=== PATIENT | female | born 1960 | race Caucasian/White ===

== ENCOUNTER 2022-01-13 08:52 | Outpatient (CLI) | payer BC, SELFPAY ==
[2022-01-13 13:52] LABS: Chloride* 101 mmol/L (96-114); Sodium* 137 mmol/L (135-149)
[2022-01-13 13:53] LABS: Potassium* 4.3 mmol/L (3.6-5.1)
[2022-01-13 13:55] LABS: Creatinine* 0.8 mg/dL (0.5-1.5); Estimated Glomerular Filt Rate 83 ml/min
[2022-01-13 13:56] LABS: Blood Urea Nitrogen* 23 mg/dL (7-30); Calcium* 9.6 mg/dL (8.4-10.6); Carbon Dioxide* 27 mmol/L (20-32); Glucose* 108 mg/dL (60-115)
== END 2022-01-13 08:53 | disposition home or self-care (01) ==
LOC: LKVREF 08:53
PROVIDERS: PCP Emergency Medicine; Visit Provider Physician Assistant Medical
DX: I10 Essential (primary) hypertension (principal)
CPT/HCPCS: 80048

== ENCOUNTER 2022-03-27 13:22 | Outpatient (CLI) | payer BC, SELFPAY ==
--- NOTE | 2022-03-27 13:30 | MR_ITS ---
[address] [address] Phone:?[phone] Fax:?[phone] Referring Physician Information: Huang Flores M.D. [id number] [facility] [address] Phone:?[phone] Fax:?[phone] Patient:Jacqueline Fry D.O.B:?1960 Sex:?Female Phone:?[phone] [facility] MRN:?[id number] Exam Date:?03/27/2022 ? EXAM: MRI of the LEFT KNEE, without contrast CLINICAL: Left knee pain. Evaluate medial meniscus. COMPARISONS: None available. TECHNICAL: MR sequences of the left knee: sagittals: PD, PDFS coronals: PD, T2FS axials: PD, PDFS SEDATION: None. CONTRAST: None. FINDINGS: Ligaments: ACL: Intact ACL anteromedial and posterolateral bundles, without sprain or tear. PCL: Intact PCL, without acute or chronic injury. MCL: Mild thickening of the proximal superficial MCL likely reflecting sequelae of prior sprain injuries, with increased soft tissue edema about the MCL. No evidence of MCL disruption. LCL: Intact LCL, without injury. Posterolateral corner: Popliteus, biceps femoris, iliotibial band, and the popliteofibular ligament appear intact. Posteromedial corner: Semimembranosus, pes anserine tendons and posterior oblique ligament appear intact. Extensor mechanism: Patellar tendon: Intact, without tendinopathy. Quadriceps tendon: Intact, without tendinopathy. Retinacula: Medial and lateral retinacula are intact. Fat pads: There is minimal edema within superolateral Hoffa's fat. Patellofemoral joint: Patella: Full thickness chondral loss involves the medial facet and patellar median ridge with mild underlying subchondral reactive edema. Trochlea: Grade 3-4 chondral loss involves the medial and inferior central trochlea with mild subchondral reactive marrow edema. Medial compartment: Medial meniscus: There is high-grade complex tearing with complete disruption/avulsion of the posterior root fibers as seen on sagittal series 6 image 14-15 and coronal series 8 image 20-21. Degenerative signal changes involving the posterior horn. Mild degenerative fraying/tearing involves the free edge of the body segment. There is approximately 4 mm of medial extrusion of the peripheral body segment medial meniscus into the medial gutter. Medial cartilage: High-grade/full-thickness chondral loss involves the weightbearing medial femoral condyle, also seen to involve the peripheral posterior nonweightbearing medial femoral condyle with mild underlying subchondral reactive edema. Lateral compartment: Lateral meniscus: Ill-defined degenerative fraying/tearing involves the posterior root fibers on sagittal series 6 image 19-20. Lateral meniscus otherwise appears intact. No meniscal displacement. Lateral cartilage: There is heterogeneity of the patellar cartilage. Grade 2-3 chondral thinning involves the weightbearing lateral femoral condyle. Knee joint: Effusion: Moderate left knee effusion. Intra-articular bodies:?No convincing bodies identified. Popliteal cyst: Large popliteal cyst is present with internal complexity/synovitis. Bones: There is mild subchondral marrow edema involving the peripheral medial tibial plateau. No osseous fracture site is identified. Mild degenerative peripheral marginal spurring involves all 3 compartments of the knee. IMPRESSION: 1. Tearing of the medial meniscus as above, with approximately 4 mm of medial extrusion of the peripheral body segment medial meniscus into the medial gutter. 2. Ill-defined degenerative fraying/tearing involving the posterior root fibers lateral meniscus. 3. Tricompartmental chondromalacia as above, with high-grade/full-thickness chondral loss seen to involve the patellofemoral and medial compartments. 4. Mild subchondral marrow edema involving the peripheral medial tibial plateau may reflect reactive changes or mild stress related change. No discrete osseous fracture identified. 5. Mild thickening of the proximal superficial MCL suggesting sequelae of prior sprain injuries, with soft tissue edema noted about the MCL. Remaining ligamentous structures appear intact. 6. Moderate joint effusion. 7. Large popliteal cyst. [facility] Electronically signed on 03/27/2022 5:03:00 PM by Pj Marshall D.O.
== END 2022-03-27 13:23 | disposition home or self-care (01) ==
LOC: MRI 13:23
PROVIDERS: PCP Physician Assistant Medical; Visit Provider Orthopaedic Surgery Sports Medicine
DX: M25.562 Pain in left knee (principal); S83.242A Other tear of medial meniscus, current injury, left knee, initial encounter; M94.262 Chondromalacia, left knee; M12.46 Intermittent hydrarthrosis, knee; M71.22 Synovial cyst of popliteal space [Baker], left knee; S83.8X2A Sprain of other specified parts of left knee, initial encounter
CPT/HCPCS: 73721

== ENCOUNTER 2022-05-06 06:34 | Day surgery (SDC) | payer BC, SELFPAY ==
[2022-05-06] VITALS (11 sets, daily range): BP systolic 106–134; BP diastolic 62–87; PULSE 71–91; RESP 16; TEMP 36.1–36.7; O2SAT 95–99; BMI 31.6
[2022-05-06] MEDS: LACTATED RINGERS 1000 ML 1,000 ML 100 ML IV (07:30)
[2022-05-06] MEDS: SODIUM CHLORIDE 0.9 % (FLUSH) 10 ML SYRINGE IVF (07:33)
--- NOTE | 2022-05-06 07:37 | SUR.PREOP ---
Home COVID test negative verified by scientific writer.
[2022-05-06] MEDS: CEFAZOLIN 2 GM in 0.9 % SODIUM CHLORIDE Mini-bag 100 ML IVPB (08:02)
[2022-05-06] MEDS: ROPIVACAINE 0.5% 30 ML 150 MG INJECTION (08:48)
--- NOTE | 2022-05-06 08:55 | P.ORPRC_ITS ---
Procedure Note Date of procedure: 05/06/22 Procedure: PREOPERATIVE DIAGNOSIS: 1. Left knee medial meniscus posterior root tear 2. Left knee MCL sprain, remote/chronic, grade 2 3. 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 Left knee grade 3-4 chondromalacia medial femoral condyle with loose chondral flaps POSTOPERATIVE DIAGNOSIS: 1. Left knee medial meniscus posterior root tear 2. Left knee MCL sprain, remote/chronic, grade 2 3. 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 Left knee grade 3-4 chondromalacia medial femoral condyle with loose chondral flaps PROCEDURE: 1. Left knee arthroscopic partial medial menisectomy 2. Left knee chondroplasty medial femoral condyle SURGEON: Huang Flores M.D. LOCOMOTIVE OILER: Francis Shannon PA-C. Of note, an bindery library technical assistant was critical for this case to aid in patient positioning, knee manipulation, instrument exchange, and closure. ANESTHESIA: Spinal EBL: Less than 5 mL TOURNIQUET: 25 minutes at 300 torr COMPLICATIONS: None evident INDICATIONS: The patient is a pleasant 61-year-old female who has experienced left knee pain particularly with any twisting or turning. Physical exam was concerning for medial meniscus tear, this was confirmed on MRI. Additionally, attempted nonoperative management has been tried, and failed. Thus, surgery was recommended. FINDINGS: Full-thickness chondral loss broadly through the trochlea . (approximately 25 mm in diameter) and grade 3-4 patella broadly median ridge and medial and lateral adjacent patellar facets. Grade 3-4 chondromalacia medial femoral condyle far medial aspect and weight-bearing portion with associated loose chondral flaps. Medial meniscus posterior root tear. Chronic in nature based on fibrosed rounded surface and no hemorrhagic tissue. In addition, there is some posterior horn tearing showing significant instability to the meniscus. Also meniscal capsular sprained midbody adjacent to the deep MCL attachment. Lateral compartment was intact. No loose bodies evident. Moderate to large Jameson cyst encountered. DESCRIPTION OF PROCEDURE: After a thorough discussion of risks, benefits, and alternatives, the patient was brought to the operating room and placed upon the operating table. Induction of anesthesia was undertaken as previously noted. 2g iv Ancef was administered within 1 hr of incision preoperatively. Appropriate time-out was performed identifying proper patient, site, and procedure. The left lower extremity was prepped and draped in the appropriate sterile fashion using ChloraPrep. The limb was exsanguinated and tourniquet inflated. Anterolateral and anteromedial portals were established with an 11 blade, and a diagnostic arthroscopy was performed. This identified the findings as noted above. Following the diagnostic arthroscopy, further inspection of the meniscus and probing of this showed it to have gross instability. However, there is also grade 3-4 chondromalacia medial compartment and large section of grade 4 chondromalacia patellofemoral compartment. The combination was felt that partial meniscectomy was prudent rather than repair. Thus, a partial medial menisectomy was performed with the combination of basket forceps and a motorized shaver. Following this, the meniscus was re-probed and found to be stable. Approximately 25 % of the overall meniscus required resection. It was also noted that the MCL had mild-moderate increased laxity compared to the contralateral side particularly at 30? of knee flexion. This seemed consistent with the patient's grade 2 MCL sprain seen on MRI. As such, a hinged knee brace was applied to help provide stability to the knee. At this stage, the shaver was reinserted into the suprapatellar pouch and all remaining meniscal debris was evacuated. Instruments were removed, excess fluid was drained, and closure performed with 4-0 Monocryl with Steri-Strips. Dressings were applied, the tourniquet deflated, and the patient was awoken from anesthesia and transferred to the PACU in stable condition. PLAN: 1. Weightbear as tolerated operative extremity. Crutch / walker ambulation assistance PRN. Straight leg raise to be initiated starting tomorrow by the patient. 2. Ice, acetominophen and/or ibuprofen, and Percocet for pain as needed. 3. Knee range of motion and quad sets/straight leg raise regularly 4. Follow up with PA visit in 7-10 days. for a wound check. Initiate physical therapy at that time
--- NOTE | 2022-05-06 09:04 | W.ANESCHARGE ---
Anesthesia Charges Start Date/Time Anesthesia Start Date: 05/06/22 Anesthesia Start Time: 07:56 Stop Date/Time Anesthesia Stop Date: 05/06/22 Anesthesia Stop Time: 09:04 Summary Emergency: No
== END 2022-05-06 10:42 | disposition home or self-care (01) ==
PROVIDERS: PCP Physician Assistant Medical; Visit Provider Orthopaedic Surgery Sports Medicine
PROC: (CPT 29882; principal; 2022-05-06 08:00)
DX: M23.222 Derangement of posterior horn of medial meniscus due to old tear or injury, left knee (principal); S83.412A Sprain of medial collateral ligament of left knee, initial encounter; M94.262 Chondromalacia, left knee; M23.52 Chronic instability of knee, left knee
CPT/HCPCS: 29881; 29877; 01400; J0690; J1100; J2250; J2370; J2400; J2405; J2704; J2795; J3010; J7120; L1833

== ENCOUNTER 2022-05-19 06:10 | Outpatient (CLI) | payer BC, SELFPAY ==
--- NOTE | 2022-05-19 08:32 | W.ANESCHARGE ---
Anesthesia Charges Start Date/Time Anesthesia Start Date: 05/19/22 Anesthesia Start Time: 07:20 Stop Date/Time Anesthesia Stop Date: 05/19/22 Anesthesia Stop Time: 07:45 Summary Emergency: No
--- NOTE | 2022-05-19 08:37 | W.ANESCHARGE ---
Anesthesia Charges Start Date/Time Anesthesia Start Date: 05/19/22 Anesthesia Start Time: 07:20 Stop Date/Time Anesthesia Stop Date: 05/19/22 Anesthesia Stop Time: 07:45 Summary Emergency: No
== END 2022-05-19 06:11 | disposition home or self-care (01) ==
LOC: OP CLINIC 06:11
PROVIDERS: PCP Physician Assistant Medical; Visit Provider Surgery
DX: Z12.11 Encounter for screening for malignant neoplasm of colon (principal)
CPT/HCPCS: 00811; 00812; 45378; J2704

== ENCOUNTER 2022-07-03 08:15 | Outpatient (RCR) | payer BC, SELFPAY | END 2022-08-12 14:27 | disposition home or self-care (01) | PROVIDERS: PCP Physician Assistant Medical; Visit Provider Physician Assistant Medical | DX: M25.562 Pain in left knee (principal); Z98.890 Other specified postprocedural states; Z51.89 Encounter for other specified aftercare | CPT/HCPCS: 97110; 97140; 97161; 97164 ==

== ENCOUNTER 2022-08-24 08:57 | Outpatient (CLI) | payer BC, SELFPAY ==
--- NOTE | 2022-08-24 09:15 | CRLHL7_ITS ---
For Patients: As a result of the Century Cures Act, medical imaging exams and procedure reports are released immediately into your electronic medical record. You may view this report before your referring provider. If you have questions, please contact your health care provider. BILATERAL SCREENING MAMMOGRAM WITH COMPUTER-AIDED DETECTION TECHNIQUE: CC and MLO views were obtained. These mammographic images have been obtained using full-field digital technique. These mammographic images were interpreted with the benefit of computer-aided detection. COMPARISON FILM: 07/25/21, 03/29/20, 01/27/18. FINDINGS: The breasts are almost entirely fatty IMPRESSION: There is no radiographic evidence for malignancy. ASSESSMENT: BI-RADS Category 2: Benign RECOMMENDATION: Routine screening mammogram in 1 year. A lay language report of this examination will be provided to the patient. Ruiz Carter M.D. Diagnostic/Nuclear Medicine Radiologist [email or web address] JO/Dictated by: Ruiz Carter MD @ 08/24/2022 9:39:00 AM (Electronically Signed)
== END 2022-08-24 08:58 | disposition home or self-care (01) ==
LOC: MAMMO 08:58
PROVIDERS: PCP Physician Assistant Medical; Visit Provider Physician Assistant Medical
DX: Z12.31 Encounter for screening mammogram for malignant neoplasm of breast (principal)
CPT/HCPCS: 77063; 77067

== ENCOUNTER 2022-09-30 08:40 | Outpatient (CLI) | payer BC, SELFPAY | END 2022-09-30 08:41 | disposition home or self-care (01) | PROVIDERS: PCP Physician Assistant Medical; Visit Provider Physician Assistant Medical | DX: Z00.00 Encounter for general adult medical examination without abnormal findings (principal); I10 Essential (primary) hypertension; D50.9 Iron deficiency anemia, unspecified; Z13.1 Encounter for screening for diabetes mellitus; Z13.6 Encounter for screening for cardiovascular disorders | CPT/HCPCS: 80061; 82947; 84443 ==

== ENCOUNTER 2023-10-05 15:47 | Outpatient (CLI) | payer BC, SELFPAY ==
--- OUTSIDE RECORDS SUMMARY | 2023-10-05 15:49 | XMS_ITS | Data Portability ---
Author Name Unknown Address [address] [place] [address] Phone [phone] Organization [facility], Main Office Address [address] [place] [address] Assessment Encounter Date Assessment Date Assessment LastModified by Organization Details LastModified Time 12/21/2022 12/21/2022 1. Biopsy-proven basal carcinoma left upper cutaneous lip near the nasal alar crease. 2. Biopsy-proven basal carcinoma left nasal sidewall near the left lower eyelid. We discussed the almost guaranteed swelling and bruising of the left lower eyelid. We reviewed the length of scar versus the width of the scar. Pain discomfort downtime chance of infection. Chance of recurrence. Numbness of the upper lip. The importance of not biting her burning her lip throughout the day. Written and verbal informed consent obtained. Both areas cleansed with alcohol. New paragraph both areas anesthetized 1% lidocaine with epinephrine primarily, lidocaine without epinephrine into a small degree some ropivacaine. 1. Basal cell carcinoma left nasal sidewall. Mohs case number [id number] Stage I: Curette debulking performed. 1/2 mm margins taken down to the subcutis revealing basal carcinoma near the 1:00 2:00 3:00 pole. Stage II: Curette debulking performed. 1/2 mm margins taken from 11:00 to 4:00 through 3:00 revealing no residual basal carcinoma Total stages 2 total sections 2 final defect measuring 0.8 cm. Intermediate closure performed by removing redundancies superior and inferior in a premarked wrinkle. Undermined 3 to 7 mm. Hemostasis attained electrocautery closed with 4-0 Vicryl in simple interrupted 4-0 Prolene. For an intermediate closure measuring 1.3 cm. Pressure dressing applied. Typewritten verbal wound care instructions given along with cell phone number suture removal in 8 days in [place]. 2. Biopsy-proven basal carcinoma left upper cutaneous lip here for Mohs surgery Mohs case number [id number] Stage I: Curette debulking performed. 1/2 mm margins taken to the deep subcutis revealing no residual basal carcinoma Total stages 1 total section 1 0.9 cm. Intermediate closure performed with modified m plasty superior. Undermined all directions 3 to 7 mm. Hemostasis obtained with electrocautery pressure closed with 4-0 Vicryl in simple interrupted 4-0 Prolene for an intermediate closure of 2.7 cm. Pressure dressing applied typewritten verbal wound care instructions given 2 distinct skin cancers left nasal sidewall basal carcinoma and left upper cutaneous lip. They are both intermediate closures therefore they will be combined for closure length measuring 4.0 cm The basal carcinoma on the left nasal sidewall had 2 stages 2 sections. The basal carcinoma left upper lip had 1 stage I section. Follow-up in [place] Typewritten verbal wound care instructions given along with cell phone number. [email or web address] Not available 12/22/2022 00:42:33 Plan of Treatment Reminders Order Date Submit Date Provider Last Modified By Organization Details Last Modified Time Details Appointments None record ed. Lab None record ed. Referral None record ed. Procedures None record ed. Surgeries None record ed. Imaging None record ed. Medication Orders None record ed. Patient TargetsNo targets recorded. Patient InstructionsNo instructions recorded. Reason for Referral None Reported. Results Created Date Observation Date Name Description Value Unit Range Abnormal Flag LastModifiedBy Organization Detail LastModifiedTime Result Notes None recorded. Medical Equipment None Reported. Medications Name Sig Start Date Stop Date Status Note LastModified by Organization Details LastModified Time oxycodone-acet aminophen 5 mg-325 mg tablet TAKE 1 TABLET BY MOUTH EVERY 4 TO 8 HOURS NEEDED FOR PAIN active Not Available Not Available No t Available lisinopril 10 mg tablet TAKE 1 TABLET BY MOUTH EVERY DAY active Not Available Not Available No t Available hydrochlorothi azide 12.5 mg capsule TAKE 1 CAPSULE BY MOUTH EVERY DAY active Not Available Not Available No t Available GaviLyte-G 236 gram-22.74 gram-6.74 gram-5.86 gram oral solution FOLLOW ENCLOSED DIRECTION S. active Not Available Not Available No t Available Vitals None Recorded Social History None recorded. Functional Status None recorded. Mental Status None recorded. Family History Nothing Reported. Medical History No medical history recorded. Gynecological HistoryNo gynecological history recorded. Obstetrics History GPAL:G 0 P 0 0 0 0 Past Encounters Encounter ID Performer Location Encounter Start Date Encounter Closed Date Diagnosis/Indication Diagnosis SNOMED-CT Code 88759 Lio Kelley MD Main Office [address] [facility] [place] [address] 12/21/2022 12:26:23 12/22/2022 00:43:32 Basal cell carcinoma of nose [id number] Basal cell carcinoma of skin of lip [id number] Health Concerns Section Related Observation LastModified by Organization Detai ls LastModified Time None Recorded Concern Status LastModified by Organization Details LastModified Time None Recorded Advance Directives Directive None Recorded Payers Encounter Date Sequence Insurance Name Policy Number Policy Ramos Covered Member ID Ramos Member ID Guarantor Name 12/21/2022 1 [place] [id number] Belkyssonal Fry [id number] Belkys Fry Notes Date Note Type Note Provider Name and Address Organization Details Recorded Time 12/21/2022 text/html HPI Notes: 61-year-old female presents for 2 biopsy-proven basal carcinomas in high risk areas left upper cutaneous lip near the nasolabial fold superior and the left nasal sidewall abutting the medial teardrop of the left lower eyelid She is accompanied by her daughter but her daughter does not attend any portion of the actual visit. Her past medical, family history and social history are unchanged in the interim since her visit in [facility] review systems: patient feels overall excellent health, weight stable, no issues with bleeding, clotting or healing. Lio Kelley MD [address], [place], [address], [facility] 12/22/2022 00:43:26 OBGyn Episode No OBEpisode recorded.
--- NOTE | 2023-10-05 16:00 | MM_ITS ---
Patient: ANALISA BISHOP Facility:?[facility] Patient ID:?[id number] Site Patient ID:?[id number]. Site :?1960 Study:?XRay-Breast Bilateral 3D screening mammogram w/cad-10/05/2023 4:20:16 PM Ordering Physician:Babatunde Final Report: BILATERAL SCREENING MAMMOGRAM WITH COMPUTER-AIDED DETECTION AND TOMOSYNTHESIS TECHNIQUE: CC and MLO views were obtained. These mammographic images have been obtained using full-field digital technique. These mammographic images were interpreted with the benefit of computer-aided detection. Breast Tomosynthesis was used in this interpretation. COMPARISON FILM: 08/24/22, 07/25/21, 03/29/20. FINDINGS: There are scattered areas of fibroglandular density. IMPRESSION: There is no radiographic evidence for malignancy. ASSESSMENT: BI-RADS Category 2: Benign RECOMMENDATION: Routine screening mammogram in 1 year. A lay language report of this examination will be provided to the patient. David Silver M.D. Diagnostic Radiologist [email or web address] DSM/sp R& Transcribed: 4:29 p.m. SP/Dictated by: David Silver MD @ 10/06/2023 11:40:00 AM Signed by:?David Silver MD @10/07/2023 5:30:03 AM (Electronic Signature)
== END 2023-10-05 15:48 | disposition home or self-care (01) ==
PROVIDERS: PCP Physician Assistant Medical; Visit Provider Physician Assistant Medical
DX: Z12.31 Encounter for screening mammogram for malignant neoplasm of breast (principal)
CPT/HCPCS: 77063; 77067

== ENCOUNTER 2023-11-11 08:51 | Outpatient (CLI) | payer BC, SELFPAY | END 2023-11-11 08:52 | disposition home or self-care (01) | PROVIDERS: PCP Physician Assistant Medical; Visit Provider Physician Assistant Medical | DX: I10 Essential (primary) hypertension (principal); M25.59 Pain in other specified joint; Z11.59 Encounter for screening for other viral diseases; Z13.29 Encounter for screening for other suspected endocrine disorder; Z13.220 Encounter for screening for lipoid disorders | CPT/HCPCS: 80053; 80061; 84443; 84550; 86039; 86140; 86200; 86431; 86618; 86703; 86803; 86812; 87086 ==

== ENCOUNTER 2024-04-03 10:45 | Outpatient (CLI) | payer BC, SELFPAY | END 2024-04-03 10:46 | disposition home or self-care (01) | LOC: LKVREF 10:46 | PROVIDERS: PCP Physician Assistant Medical; Visit Provider Family Medicine | DX: Z01.818 Encounter for other preprocedural examination (principal); I10 Essential (primary) hypertension | CPT/HCPCS: 80048 ==

== ENCOUNTER 2024-04-17 06:03 | Day surgery (SDC) | payer BC, SELFPAY ==
[2024-04-17] VITALS (22 sets, daily range): BP systolic 81–131; BP diastolic 46–79; PULSE 64–87; RESP 12–16; TEMP 36.1–36.3; O2SAT 96–100; BMI 31.1
[2024-04-17] MEDS: ACETAMINOPHEN 500 MG TABLET 1000 MG PO (06:20)
[2024-04-17] MEDS: OXYCODONE (CR) 10 MG TAB.ER.12H PO (06:20)
[2024-04-17] MEDS: SODIUM CHLORIDE 0.9 % (FLUSH) 10 ML SYRINGE IVF (06:50)
[2024-04-17] MEDS: LACTATED RINGERS 1000 ML 1,000 ML 100 ML IV (06:50)
[2024-04-17] MEDS: MIDAZOLAM HCL 1 MG/ML inj IVP (07:08)
[2024-04-17] MEDS: fentaNYL 100 MCG/2 ML inj IVP (07:08)
--- NOTE | 2024-04-17 07:14 | SUR.PREOP ---
TIME?OUT:?0707 PT/RN/MDA?VERIFICATION?OF?SURGICAL?SITE,?PROCEDURE,?AND?CONSENT OBTAINED?PRIOR?TO?INVASIVE?PROCEDURE.
--- NOTE | 2024-04-17 07:28 | W.PM.H&PU ---
History & Physical Update History & Physical Update H&P Reviewed and patient assessed: No changes noted
[2024-04-17] MEDS: CEFAZOLIN 2 GM in 0.9 % SODIUM CHLORIDE Mini-bag 100 ML IVPB (07:42)
[2024-04-17] MEDS: TRANEXAMIC ACID 100 MG/ML INJ 1000 MG IV (07:45)
--- NOTE | 2024-04-17 07:45 | CRLHL7_ITS ---
For Patients: As a result of the Century Cures Act, medical imaging exams and procedure reports are released immediately into your electronic medical record. You may view this report before your referring provider. If you have questions, please contact your health care provider. INDICATION: Left total knee arthroplasty TECHNIQUE: Knee radiograph 2 views left COMPARISON: 02/17/2024 FINDINGS: Bone: No acute fractures or aggressive bone lesions are identified. Joint: The patient is status post a total knee arthroplasty with patellar resurfacing. No significant knee effusion is seen. Soft tissue: Anterior subcutaneous gas and joint gas are present from recent surgery. No radiopaque foreign bodies are seen. Overlying fabric artifacts limits the exam. IMPRESSION: 1. There is an unremarkable postoperative appearance of the knee arthroplasty. Dictated by: Dakota Paul MD @ 04/17/2024 12:28:13 (Electronically Signed)
--- NOTE | 2024-04-17 08:53 | PM.ORPRC ---
Procedure Note Date of procedure: 04/17/24 Procedure: PREOPERATIVE DIAGNOSIS: 1. Left knee osteoarthritis, primary, severe POSTOPERATIVE DIAGNOSIS: 1. Left knee osteoarthritis, primary, severe PROCEDURE: 1. Left total knee arthroplasty SURGEON: Huang Flores MD. QUALITY ASSURANCE CONSULTANT: STACI Koehler - Of note, a skilled development assistant was critical for this case to aid in patient positioning, tissue retraction, limb manipulation/positioning, and closure. ANESTHESIA: Spinal anesthetic EBL: 50ml IMPLANTS: DePuy J&J uncemented femur/tibia, cemented patella TKA - Attune Press fit PS femur size 5 narrow, size 4 tibia, 5 mm poly spacer, 38 mm cemented patella TOURNIQUET: 75 minutes at 300 torr COMPLICATIONS: None evident INDICATIONS: The patient is a pleasant 63-year-old female who has experienced severe left knee pain and difficulty bearing weight. Workup included x-rays which revealed severe osteoarthrosis in the knee. Given the deformity, the dysfunction, and the pain, as well as the failure of nonoperative management, recommendation was made for surgery. FINDINGS: Full-thickness chondral loss diffusely throughout the medial and patellofemoral compartments. To a lesser degree lateral compartment. Degenerative meniscus pathology both compartments. Moderate effusion upon entering the joint. Tricompartmental osteophytes noted. DESCRIPTION OF PROCEDURE: Following a thorough discussion of risks, benefits, and alternatives consent was obtained and the left knee was marked. The patient was brought to the operating room and placed supine on the operating table. Induction of anesthesia was undertaken. 2 g IV Ancef and 1 g tranexamic acid was administered within 1 hr of incision preoperatively. Proper time-out was performed identifying proper patient, site, procedure. The operative extremity was prepped and draped in the appropriate sterile fashion using ChloraPrep after the patient was positioned supine with all bony prominences well padded. A longitudinal, anterior, midline skin incision was made starting approximately 3cm proximal to the superior pole of the patella and advanced distal to the tibial tubercle. A sub vastus approach was utilized . After mobilizing the patella, retropatellar fatpad was resected and the synovium in the suprapatellar pouch excised to visualize the anterior femoral cortex. We began with cutting the patella to help improve mobility of this patella and quad tendon. The patella was initially measured and found have a thickness of 20 mm. It was resected back to approximately 14.5 mm. Femoral preparation was performed via an intramedullary guide. Step drill allowed access into the femoral canal. The distal cutting guide was placed with 5? of valgus and 10 mm cut on the distal femur. Femur was sized using a anterior referencing guide in 3? of external rotation. This found have a best fit with the sizing noted above. The 4 in 1 cutting block was then placed, and the distal femur shaped accordingly. The box cut was then created and the trial implant inserted to confirm appropriate fit. We turned our attention to the proximal tibia. Extramedullary guide was utilized for cutting with the goal of being 90 degree cut from the mechanical axis of the tibia in the varus/valgus plane utilizing tibial crest as the primary alignment. Initially a 2 mm resection was performed from the medial tibial plateau. Ultimately, balancing was achieved in both flexion and extension in both varus and valgus. The knee was able to achieve full extension comfortably. It was sized to be a best fit with as noted above. The patella prep was completed with drilling and a trial placed. At this stage, trial implants were removed, the tibia and femoral components were opened and inserted. Thereafter, the patella was thoroughly irrigated normal saline and dried. The cement was previously mixed on the back table and cement placed followed by the implant. This was clamped and allowed remained stable until the cement cured. The real poly spacer was opened and inserted. All extra cement was removed, and a 3 min Betadine soak performed. Finally, a final irrigation round with normal saline was performed. Closure performed with 0 PDS and #0 Stratafix for the quad tendon/retinaculum. 2-0 Vicryl/Stratafix for the subcutaneous and 4-0 Monocryl for subcuticular closure. Dressings were applied and the patient was awoken from anesthesia after the tourniquet deflated and transferred the PACU in stable condition. A skilled development assistant was critical for this case to aid in patient positioning, tissue retraction, bone exposure, limb manipulation/positioning, patient safety, and closure. PLAN: 1. Weight bear as tolerated operative extremity. 2. 23 hr perioperative antibiotics. 3. Ice. 4. PT/OT consults for ambulation assistance/mobility education. 5. Social work consult for discharge planning. 6. DVT prophylaxis with at SCDs, Klaus Hose, and aspirin twice daily.
--- NOTE | 2024-04-17 09:23 | W.ANESCHARGE ---
Anesthesia Charges Start Date/Time Anesthesia Start Date: 04/17/24 Anesthesia Start Time: 07:30 Stop Date/Time Anesthesia Stop Date: 04/17/24 Anesthesia Stop Time: 09:21
[2024-04-17] MEDS: PHENYLEPHRINE 100 MCG/ML SYRINGE IVP (09:26)
--- NOTE | 2024-04-17 09:36 | W.ANESCHARGE ---
Anesthesia Charges Start Date/Time Anesthesia Start Date: 04/17/24 Anesthesia Start Time: 07:30 Stop Date/Time Anesthesia Stop Date: 04/17/24 Anesthesia Stop Time: 09:21
--- NOTE | 2024-04-17 09:37 | W.PM.NB ---
Nerve Block Nerve Block Time Seen by Provider: 07:10 Date Seen: 04/17/24 Type of block requested by surgeon for post-operative analgesia: femoral Side: left Time out performed: Yes Verification of patient name: Yes Verification of date of : Yes Site marking: site marked Name of person performing procedure: Meet Continuous monitoring Was continuous monitoring of O2 sat, B/P, quality assurance monitor body, recorded every 15 minutes?: Yes Procedure Checklist: sterile prep, needles and gloves Ultrasound guided. Images saved: Yes Medications given in 5ml increments after negative aspiration: Marcaine %: 0.25 mL: 15 Needle gauge: 20 Precedex (mcg): 25 Patient tolerated procedure well: Yes Block Charges Block Charge (with Pro Fee): Femoral Nerve Use of Ultrasound Machine for Block: Yes- US Guidance/pain block
--- NOTE | 2024-04-17 09:37 | W.PM.NB ---
Nerve Block Nerve Block Time Seen by Provider: 07:10 Date Seen: 04/17/24 Type of block requested by surgeon for post-operative analgesia: geniculars Side: left Time out performed: Yes Verification of patient name: Yes Verification of date of : Yes Site marking: site marked Name of person performing procedure: Meet Continuous monitoring Was continuous monitoring of O2 sat, B/P, director cardiac, recorded every 15 minutes?: Yes Procedure Checklist: sterile prep, needles and gloves Ultrasound guided. Images saved: Yes Medications given in 5ml increments after negative aspiration: Marcaine %: 0.25 mL: 9 Needle gauge: 25 Patient tolerated procedure well: Yes Block Charges Block Charge (with Pro Fee): Genicular Nerve Block
--- NOTE | 2024-04-19 06:46 | PM.ANPOST ---
Post Anesthesia Note Post Anesthesia Note Patient seen: PACU Respiratory Status: adequate Cardiovascular Status: adequate Mental Status: baseline Pain: adequate Temp: baseline Anesthetic awareness: N/A Complications: none Follow care: none
== END 2024-04-17 13:40 | disposition home or self-care (01) ==
PROVIDERS: PCP Physician Assistant Medical; Visit Provider Orthopaedic Surgery Sports Medicine
PROC: (CPT 27447; principal; 2024-04-17 07:30)
DX: M17.12 Unilateral primary osteoarthritis, left knee (principal); G89.18 Other acute postprocedural pain
CPT/HCPCS: 27447; 01402; 64447; 64454; 73560; 76942; 97110; 97116; 97161; A9270; C1776; J0665; J0690; J2250; J2371; J2704; J3010; J7120

== ENCOUNTER 2024-06-19 08:15 | Outpatient (RCR) | payer BC, SELFPAY | END 2024-08-03 15:20 | disposition home or self-care (01) | PROVIDERS: PCP Physician Assistant Medical; Visit Provider Orthopaedic Surgery Sports Medicine | DX: M17.11 Unilateral primary osteoarthritis, right knee (principal); Z96.652 Presence of left artificial knee joint; Z51.89 Encounter for other specified aftercare | CPT/HCPCS: 97016; 97110; 97140; 97161 ==

== ENCOUNTER 2025-02-27 08:01 | Outpatient (CLI) | payer MEDICARE, SELFPAY ==
--- NOTE | 2025-02-27 08:15 | CRLHL7_ITS ---
For Patients: As a result of the Century Cures Act, medical imaging exams and procedure reports are released immediately into your electronic medical record. You may view this report before your referring provider. If you have questions, please contact your health care provider. INDICATION: BILATERAL SCREENING MAMMOGRAM, ASYMPTOMATIC 64 Y/O FEMALE COMPARISON: 10/05/2023, 08/24/2022, 07/25/2021 TECHNIQUE: Digital mammogram in CC and MLO projections including computer-aided detection (CAD) and tomosynthesis. BREAST COMPOSITION: There are scattered areas of fibroglandular density. FINDINGS: No suspicious findings. ASSESSMENT: BI-RADS 1 Negative RECOMMENDATION: Annual screening mammogram. A lay language report of this examination will be provided to the patient. Dictated by: David Silver MD @ 02/27/2025 09:01:52 (Electronically Signed)
== END 2025-02-27 08:02 | disposition home or self-care (01) ==
LOC: MAMMO 08:01
PROVIDERS: PCP Physician Assistant Medical; Visit Provider Physician Assistant Medical
DX: Z12.31 Encounter for screening mammogram for malignant neoplasm of breast (principal)
CPT/HCPCS: 77063; 77067

== ENCOUNTER 2025-04-11 13:56 | Outpatient (CLI) | payer MEDICARE, SELFPAY ==
--- NOTE | 2025-04-11 10:53 | PM.PROC ---
Procedure Note Time Seen by Provider: 14:30 Date Seen: 04/11/25 Provider Contact Time: 15:15 Date of procedure: 04/11/25 Will [facility] bill your pro fee for this procedure?: Yes Procedure: CRYONEUROLYSIS TREATMENT REPORT REFERRING PROVIDER: Huang Flores TREATMENT PROVIDER: Min Dsouza PREOPERATIVE DIAGNOSIS: Right knee osteoarthritis POSTOPERATIVE DIAGNOSIS: Right knee osteoarthritis? PROCEDURE: Cryoneurolysis of Multiple Sensory Nerves of the Knee ANESTHESIA: Local INDICATIONS: The patient is a very pleasant 64-year-old female patient with primary osteoarthritis involving the right knee who presents today for cryoneurolysis of multiple sensory nerves to the knee for severe knee pain.?Patient medical history was reviewed. The risks, benefits, treatment alternatives, and complications were discussed with the patient, including but not limited to bleeding, infection, nerve or tissue damage.?Informed consent was obtained. ? PRE-TREATMENT MOTOR ASSESSMENT/PAIN SCORE: Patient was able to demonstrate intact gross motor function with plantarflexion, dorsiflexion, adduction, abduction, hip flexion, and extension of the lower extremity.?Pre-treatment pain score of 6 out of 10 in the right knee. DESCRIPTION OF PROCEDURE: After obtaining informed consent, the patient was brought back to the treatment room and positioned supine on the table.?The right lower extremity was prepped with Chlorhexadine.?We began the procedure by performing our procedural pause.?Once this was completed and verified to be accurate, I began the procedure by identifying the nerves with the use of bedside ultrasound.?After the nerves were identified, the skin was marked and, using 1% lidocaine plain, the area of the nerves were anesthetized. ? After the anesthetic was administered, the Smart Tip 2190 cryoneurolysis needle was inserted into the treatment sites using ultrasound guidance.?Treatment was then initiated on the right lower extremity with the following nerves treated: Superior, superior medial, superior lateral, inferior medial genicular nerves and the infrapatellar branch of the saphenous nerve. At the termination of the treatment, the cryoneurolysis needle was removed with the patient's skin cleansed and Band-Aids and Dutch bandage applied. Patient tolerated the procedure without any incident or concern.? Patient was then instructed to stand, mobilize the joint, and was examined to ensure gross motor skills were intact. COMPLICATIONS: None POST-TREATMENT PAIN SCORE: 0 out of 10. Right knee DISPOSITION: Discharge instructions were given to the patient with education on the post-procedure expectations. Patient was instructed to call the Ortho clinic with any post-procedure concerns or questions.
[2025-04-11 14:01] VITALS: BP 126/81; PULSE 83; RESP 16; TEMP 36.5; O2SAT 97
[2025-04-11 15:05] VITALS: BP 131/77; PULSE 75; RESP 14; TEMP 36.2; O2SAT 98
== END 2025-04-11 15:15 | disposition home or self-care (01) ==
LOC: OP CLINIC 13:57
PROVIDERS: PCP Physician Assistant Medical; Visit Provider Nurse Anesthetist, Certified Registered
DX: M17.11 Unilateral primary osteoarthritis, right knee (principal)
CPT/HCPCS: 64640; 76942; C9809

== ENCOUNTER 2025-04-23 07:09 | Day surgery (SDC) | payer MEDICARE, SELFPAY ==
[2025-04-23] VITALS (17 sets, daily range): BP systolic 105–138; BP diastolic 65–81; PULSE 63–106; RESP 12–20; TEMP 36.3–36.7; O2SAT 93–99; BMI 31.9
[2025-04-23] MEDS: LACTATED RINGERS 1000 ML 1,000 ML 100 ML IV ×3 (07:55→12:19)
[2025-04-23] MEDS: SODIUM CHLORIDE 0.9 % (FLUSH) 10 ML SYRINGE IVF (07:55)
[2025-04-23] MEDS: ACETAMINOPHEN 500 MG TABLET 1000 MG PO (08:29)
[2025-04-23] MEDS: OXYCODONE (CR) 10 MG TAB.ER.12H PO (08:29)
[2025-04-23] MEDS: MIDAZOLAM HCL 1 MG/ML inj IVP (09:00)
--- NOTE | 2025-04-23 09:03 | SUR.PREOP ---
TIME?OUT:?right knee, 0857 PT/RN/MDA?VERIFICATION?OF?SURGICAL?SITE,?PROCEDURE,?AND?CONSENT OBTAINED?PRIOR?TO?INVASIVE?PROCEDURE.
[2025-04-23] MEDS: TRANEXAMIC ACID 100 MG/ML INJ 1000 MG IV (09:20)
--- NOTE | 2025-04-23 09:43 | P.ANES_ITS ---
Anesthesia Charges Start Date/Time Anesthesia Start Date: 04/23/25 Anesthesia Start Time: 09:06 Stop Date/Time Anesthesia Stop Date: 04/23/25 Anesthesia Stop Time: 10:57 Coding CPT Codes CPT Codes: ANESTH KNEE ARTHROPLASTY - 21773 ([id number]) P3 - PATIENT W/SEVERE SYS DISEASE, QK - RADIO TELEVISION ANNOUNCER 2-4 CNCRNT ANES PROC, QX - INSURANCE CLERK SVC W/ MD MED DIRECTION
--- NOTE | 2025-04-23 09:43 | W.ANESCHARGE ---
Anesthesia Charges Start Date/Time Anesthesia Start Date: 04/23/25 Anesthesia Start Time: 09:06 Stop Date/Time Anesthesia Stop Date: 04/23/25 Anesthesia Stop Time: 10:57 Coding CPT Codes CPT Codes: ANESTH KNEE ARTHROPLASTY - 94701 ([id number]) P3 - PATIENT W/SEVERE SYS DISEASE, QK - RADIO ADJUSTER 2-4 CNCRNT ANES PROC, QX - TRUCK SALES REPRESENTATIVE SVC W/ MD MED DIRECTION
--- NOTE | 2025-04-23 10:34 | P.ORPRC_ITS ---
Procedure Note Date of procedure: 04/23/25 Procedure: PREOPERATIVE DIAGNOSIS: 1. Right knee osteoarthritis, primary, severe POSTOPERATIVE DIAGNOSIS: 1. Right knee osteoarthritis, primary, severe PROCEDURE: 1. Right total knee arthroplasty, Press-Fit, Rotating Platform - No tourniquet SURGEON: Huang Flores MD. SUBSTANCE ADDICTION COORDINATOR: STACI Koehler - Of note, a skilled library technical assistant was critical for this case to aid in patient positioning, tissue retraction, limb manipulati on/positioning, and closure. ANESTHESIA: Spinal anesthetic EBL: 100ml IMPLANTS: DePuy J&J uncemented TKA - Attune PS femur size 5 narrow Size 4 tibia Rotating Platform 5 mm RP poly spacer 38 mm Affixium patella TOURNIQUET: None COMPLICATIONS: None evident INDICATIONS: The patient is a pleasant 64-year-old female who has experienced severe right knee pain and difficulty bearing weight. Workup included x-rays which revealed severe osteoarthrosis in the knee. Given the deformity, the dysfunction, and the pain, as well as the failure of nonoperative management, recommendation was made for surgery. FINDINGS: Full-thickness chondral loss diffusely throughout the medial and to a lesser degree the patellofemoral and lateral compartments. Moderate to large effusion upon entering the joint. Degenerative meniscus pathology medial greater than lateral. DESCRIPTION OF PROCEDURE: Following a thorough discussion of risks, benefits, a nd alternatives consent was obtained and the right knee was marked. The patient was brought to the operating room and placed supine on the operating table. Induction of anesthesia was undertaken. 2 g IV Ancef and 1 g tranexamic acid was administered within 1 hr of incision preoperatively. Proper time-out was performed identifying proper patient, site, procedure. The operative extremity was prepped and draped in the appropriate sterile fashion using ChloraPrep after the patient was positioned supine with all bony prominences well padded. A longitudinal, anterior, midline skin incision was made starting approximately 3cm proximal to the superior pole of the patella and advanced distal to the tibial tubercle. A sub vastus approach was utilized. After mobilizing the patella, the retropatellar fatpad was resected and the synovium in the suprapatellar pouch excised to visualize the anterior femoral cortex. Patellar prep showed initial measurement/thickness of 20 mm. It was resected back to approximately 14 mm. The patella prep was completed with drilling and a trial placed followed by a protector plate until final component implantation. Femoral preparation was performed via an intramedullary guide. Step drill allowed access into the femoral canal. The distal cutting guide was placed with 5? of valgus and 10 mm cut on the distal femur. Femur was sized using a anterior referencing guide in 3? of external rotation. This was found to have a best fit with the sizing noted above. The 4 in 1 cutting block was then placed, and the distal femur shaped accordingly. The box cut was then completed. We turned our attention to the proximal tibia. Extramedullary guide was utilized for cutting with the goal of being 90 degree cut from the mechanical axis of the tibia in the varus/valgus plane utilizing tibial crest as the primary alignment. Initially a 2 mm resection was performed from the medial tibial plateau. An additional 2 mm of tibial resection was needed to achieve proper balance in both flexion & extension. Ultimately, balancing was achieved in both flexion and extension in both varus and valgus. The knee was able to achieve full extension comfortably. It was sized to be a best fit with as noted above. At this stage, trial implants were removed, the tibia and femoral and patellar components were opened and inserted. The real poly spacer was opened and inserted. A 3 min Betadine soak performed. Finally, a final irrigation round with normal saline was performed. Closure performed with 0 PDS and #0 Stratafix for the quad tendon/retinaculum. 2-0 Vicryl/Stratafix for the subcutaneous and 4-0 Monocryl for subcuticular closure. Dressings were applied and the patient was awoken from anesthesia and transferred the PACU in stable condition. A skilled library technical assistant was critical for this case to aid in patient positioning, tissue retraction, bone exposure, limb manipulation/positioning, patient safety, and closure. PLAN: 1. Weight bear as tolerated operative extremity. 2. 23 hr perioperative antibiotics. 3. Ice. 4. PT/OT consults for ambulation assistance/mobility education. 5. Social work consult for discharge planning. 6. DVT prophylaxis with at SCDs, and aspirin twice daily.
--- NOTE | 2025-04-23 10:55 | CRLHL7_ITS ---
For Patients: As a result of the Cures Act, medical imaging exams and procedure reports are released immediately into your electronic medical record. You may view this report before your referring provider. If you have questions, please contact your health care provider. Indication: total knee replacement Technique: Two views right knee Findings/Impression: Hardware from a right total knee arthroplasty is in satisfactory position. Bone alignment is normal. No sign of acute fracture. Postop changes are within normal limits. Dictated by David Silver MD @ 04/23/2025 11:36:56 AM (Electronically Signed)
--- NOTE | 2025-04-23 12:36 | W.PM.NB ---
Nerve Block Nerve Block Time Seen by Provider: 09:00 Date Seen: 04/23/25 Type of block requested by surgeon for post-operative analgesia: adductor canal Side: right Time out performed: Yes Verification of patient name: Yes Verification of date of : Yes Site marking: site marked Name of person performing procedure: Meet Continuous monitoring Was continuous monitoring of O2 sat, B/P, surveillance system monitor, recorded every 15 minutes?: Yes Procedure Checklist: sterile prep, needles and gloves Ultrasound guided. Images saved: Yes Medications given in 5ml increments after negative aspiration: Marcaine %: 0.25 mL: 15 Needle gauge: 20 Precedex (mcg): 25 Patient tolerated procedure well: Yes Block Charges Block Charge (with Pro Fee): Femoral Nerve Use of Ultrasound Machine for Block: Yes- US Guidance/pain block
--- NOTE | 2025-04-23 12:37 | P.ANES_ITS ---
Anesthesia Charges Start Date/Time Anesthesia Start Date: 04/23/25 Anesthesia Start Time: 09:06 Stop Date/Time Anesthesia Stop Date: 04/23/25 Anesthesia Stop Time: 10:57 Coding CPT Codes CPT Codes: ANESTH KNEE ARTHROPLASTY - 93200 ([id number]) QK - ANY COMMODITY BUYER 2-4 CNCRNT ANES PROC, QX - CONVEYOR WEIGHER OPERATOR SVC W/ MD MED DIRECTION, P3 - PATIENT W/SEVERE SYS DISEASE
--- NOTE | 2025-04-23 12:37 | W.PM.NB ---
Nerve Block Nerve Block Time Seen by Provider: 09:00 Date Seen: 04/23/25 Type of block requested by surgeon for post-operative analgesia: geniculars Side: right Time out performed: Yes Verification of patient name: Yes Verification of date of : Yes Site marking: site marked Name of person performing procedure: Meet Continuous monitoring Was continuous monitoring of O2 sat, B/P, funeral home manager, recorded every 15 minutes?: Yes Procedure Checklist: sterile prep, needles and gloves Ultrasound guided. Images saved: Yes Medications given in 5ml increments after negative aspiration: Marcaine %: 0.25 mL: 9 Needle gauge: 25 Patient tolerated procedure well: Yes Block Charges Block Charge (with Pro Fee): Genicular Nerve Block
--- NOTE | 2025-04-23 12:37 | W.ANESCHARGE ---
Anesthesia Charges Start Date/Time Anesthesia Start Date: 04/23/25 Anesthesia Start Time: 09:06 Stop Date/Time Anesthesia Stop Date: 04/23/25 Anesthesia Stop Time: 10:57 Coding CPT Codes CPT Codes: ANESTH KNEE ARTHROPLASTY - 18022 ([id number]) QK - SENIOR VICE PRESIDENT 2-4 CNCRNT ANES PROC, QX - ELECTRO MECHANICAL ASSEMBLER SVC W/ MD MED DIRECTION, P3 - PATIENT W/SEVERE SYS DISEASE
--- NOTE | 2025-04-23 14:56 | SUR.PHASEII ---
Patient returned to [facility] after passing PT. Patient verbalized understanding of discharge instructions and readiness to be discharged.
== END 2025-04-23 14:55 | disposition home or self-care (01) ==
LOC: OR 07:10
PROVIDERS: PCP Physician Assistant Medical; Visit Provider Orthopaedic Surgery Sports Medicine
PROC: (CPT 27447; principal; 2025-04-23 08:45)
DX: M17.11 Unilateral primary osteoarthritis, right knee (principal); G89.18 Other acute postprocedural pain; I10 Essential (primary) hypertension
CPT/HCPCS: 27447; 01402; 64447; 64454; 73560; 76942; 97110; 97116; 97161; A9270; C1713; C1776; J0665; J0690; J1100; J2250; J2405; J2704; J3010; J3490; J7120